=== PATIENT | male | born 1980 ===

== ENCOUNTER 2020-05-15 10:18 | Outpatient (REF) | payer OTHER, SELFPAY ==
[2020-05-15 12:26] LABS: COVID-19 Test Negative (Negative); IDNOW Serial# 55D5AD1C
== END 2020-05-15 10:19 | disposition home or self-care (01) ==
LOC: HO.LAB 10:18
PROVIDERS: Visit Provider Internal Medicine
DX: Z20.822 Contact with and (suspected) exposure to COVID-19 (principal)
CPT/HCPCS: 36415; 87635; C9803

== ENCOUNTER 2021-01-27 12:11 | Outpatient (REF) | payer OTHER, SELFPAY ==
--- NOTE | ~2021-01-27 | XR_ITS ---
EXAMINATION: XR CHEST CLINICAL INFORMATION: R04.2 - Hemoptysis COMPARISON: Chest radiographs 07/12/2016 TECHNIQUE: 2 views of the chest were obtained. FINDINGS: The lungs are clear. There is no mass or airspace consolidation or effusion. No coarsening bronchiolar markings or visible bronchiectasis. The heart is normal in size. The vascularity is normal. The hilar and mediastinal contours and visualized bony structures are unremarkable. XR/XR chest 2V IMPRESSION: Unremarkable examination.
[2021-01-27 13:49] LABS: MANUAL DIFF FLAG NO
[2021-01-27 13:56] LABS: Basophils Percent Auto 0.4 % (0-2); Eosinophils Percent Auto 0.6 % (0-4); Hematocrit 47.5 % (42.0-52.0); Imm Gran Abs Auto 0.01 X10*3/uL (0.00-0.03); Imm Gran Pct Auto 0.2 % (0.0-0.4); Lymphocytes Absolute Auto 1.1 X10*3/uL (1.2-4.9); Lymphocytes Percent Auto 24.1 % (20-40); Mean Corpuscular HGB Conc 33.7 g/dl (31.0-36.0); Mean Corpuscular Hemoglobin 30.9 pg (27.0-33.0); Mean Corpuscular Volume 91.9 fL (80.0-98.0); Monocytes Absolute Auto 0.4 X10*3/uL (0.1-1.2); Monocytes Percent Auto 7.5 % (2-11); Neutrophils Absolute Auto 3.1 x10*3/uL (2.0-8.3); Neutrophils Percent Auto 67.2 % (45-73); Platelet Count 219 X10*3/uL (160-400); Red Blood Count 5.17 X10*6/uL (4.60-5.80); Red Cell Distribution Width 12.2 % (11.0-16.0); White Blood Count 4.6 X10*3/uL (4.8-10.8)
[2021-01-27 13:58] LABS: Prothrombin Time 10.8 SEC (9.9-13.0)
[2021-01-27 14:27] LABS: Alanine Aminotransferase 20 U/L (0-40); Albumin Level 4.6 g/dL (3.5-5.0); Alkaline Phosphatase 97 U/L (39-117); Anion Gap 11 (12-20); Aspartate Amino Transferase 15 U/L (5-37); Bilirubin Total 0.5 mg/dL (0.0-1.0); Blood Urea Nitrogen 11 mg/dL (9-16); Calcium 9.9 mg/dL (8.4-10.2); Carbon Dioxide 29 mmol/L (22-29); Chloride 105 mmol/L (96-108); Estimated Glomerular Filt Rate > 60; Glucose Random 96 mg/dL (60-115); Potassium 4.5 mmol/L (3.3-5.1); Sodium 140 mmol/L (135-145); Total Protein 7.2 g/dL (6.5-8.0)
[2021-01-27 14:41] LABS: Valproate < 2.0 mcg/mL (50.0-100.0)
== END 2021-01-27 12:12 | disposition home or self-care (01) ==
LOC: HO.HMGCLDS 12:11
PROVIDERS: PCP Nurse Practitioner Family; Visit Provider Nurse Practitioner Family
DX: R04.2 Hemoptysis (principal); Z79.899 Other long term (current) drug therapy
CPT/HCPCS: 36415; 71046; 80053; 80164; 85025; 85610

== ENCOUNTER 2021-04-28 12:18 | Outpatient (REF) | payer OTHER, SELFPAY ==
--- NOTE | ~2021-04-28 | XR_ITS ---
EXAMINATION: XR KNEE, RIGHT CLINICAL INFORMATION: Fall COMPARISON: Previous x-ray October 2016 TECHNIQUE: Four views of the right knee. FINDINGS: Bone alignment is normal. No fracture or dislocation is seen. Joint spaces are normal. There is a moderate joint effusion. There is a small osteophyte at the quadriceps tendon insertion to the patella. XR/XR knee RT 4V IMPRESSION: Joint effusion. No fracture or dislocation seen.
== END 2021-04-28 12:19 | disposition home or self-care (01) ==
LOC: HO.HMGCX 12:18
PROVIDERS: Visit Provider Physician Assistant
DX: M25.461 Effusion, right knee (principal)
CPT/HCPCS: 73564

== ENCOUNTER 2021-06-01 09:04 | Outpatient (REF) | payer OTHER, SELFPAY ==
--- NOTE | ~2021-06-01 | XR_ITS ---
EXAMINATION: SUNRISE VIEW OF THE RIGHT KNEE CLINICAL INFORMATION: Pain COMPARISON: None TECHNIQUE: Single sunrise view of the right knee FINDINGS: The patella is normally positioned in the patellofemoral groove. Soft tissues are unremarkable. No acute fracture identified on this single radiograph. XR/XR knee RT 1V IMPRESSION: Unremarkable sunrise view of the right knee.
== END 2021-06-01 09:05 | disposition home or self-care (01) ==
LOC: HO.HOSX 09:04
PROVIDERS: PCP Internal Medicine; Visit Provider Physician Assistant
DX: M23.91 Unspecified internal derangement of right knee (principal)
CPT/HCPCS: 73560; 99202

== ENCOUNTER 2022-08-17 09:15 | Outpatient (AMB) | payer MEDICAID, SELFPAY ==
--- NOTE | 2022-08-17 09:50 | AM.OFFWIN_ITS ---
Intake Vital Signs 08/17/22 09:54 Height 5 ft 6 in BP 110/70 Blood Pressure Location Lt brachial Position Sitting Pulse 61 Pulse Source Pulse Oximeter Temp 97.2 F Temp Source Temporal Artery Scan Pulse Oximetry (%) 98 Oxygen Delivery Method Room Air Intake Visit Reasons: EP, Right eye burning, itchiness Intake Note: pt is here for c/o right eye itchiness and burning, since yesterday morning Patient Tobacco Use Status: Current everyday Tobacco user Tape Maker Required: No Accompanied by: Self / Same As Patient Allergies No Known Allergies [No Known Allergies*] Allergy (Verified 08/17/22 10:14) Do you need a note to return to daycare/school/sports/work: Yes HPI HPI Comments History of Present Illness Details here today with complaints of right eye itching and watery discharge along with swelling that started yesterday. Reports yesterday feeling like he had a scratch on his eye without known injury or any overt trauma. He does not wear contact lenses. No self home treatment was rendered. When he awoke this morning he had this swelling and watery discharge. He does have some light sensitivity but otherwise denies any visual changes. Denies fever chills headache. [facility] Medical History Anxiety Atopic dermatitis Carpal tunnel syndrome Surgical History Hx of left knee surgery Family History Father No problems noted. Mother Hypertension Social History Housing: Apartment Alcohol intake: current Alcohol intake frequency: a few times a week Patient Tobacco Use Status: Current everyday Tobacco user Cigarette Packs Per Day: 0.5 Cigarettes Per Day: 7 Years Smoked: 4 e-Cigarette/Vaping Use: Never Used service: No Current occupational exposures/hazards: No Cognitive needs: No Hearing needs: No Vision needs: No Review of Systems Const All systems reviewed & are unremarkable except as noted in HPI and below Physical Exam Vital Signs: Last Vital Signs Temp 97.2 F 08/17/22 09:54 Pulse 61 08/17/22 09:54 BP 110/70 08/17/22 09:54 Pulse Ox 98 08/17/22 09:54 Oxygen Delivery Method Room Air 08/17/22 09:54 Const Other: awake alert oriented atraumatic speaking in full sentences Eyes Other: Right upper and lower lid edema, able to open eyelids, watery discharge noted along with photophobia conjunctival injection generally speaking, PERRLA, EOMI Corneas: corneas abnormal on the right abrasion central and at the following clock position (6) Assessment & Plan Assessment & Plan (1) Corneal abrasion, right: Code(s): S05.01XA - Injury of conjunctiva and corneal abrasion without foreign body, right eye, initial encounter Medications: New erythromycin 0.5 inches ophthalmic (eye) BID 5 days 3.5 grams 0RF Patient Instructions: advised to call local mold making plastics sheets supervisor for eye evaluation in the next 24 hours. Given the name of [address] [place] [address] Alicia as well as the [facility]. eye protection to include sun protection recommended. Should he experience any change in vision emergency care recommended. Coding Level of Care Code Est Pt Level 3 (33714) Diagnoses Corneal abrasion, right S05.01XA
[2022-08-17 09:54] VITALS: BP 110/70; PULSE 61; TEMP 36.2; O2SAT 98
== END 2022-08-17 10:43 | disposition home or self-care (01) ==
PROVIDERS: PCP Internal Medicine; Visit Provider Nurse Practitioner Family
DX: S05.01XA Injury of conjunctiva and corneal abrasion without foreign body, right eye, initial encounter (principal)
CPT/HCPCS: 99213

== ENCOUNTER 2023-11-06 09:27 | Outpatient (REF) | payer MEDICAID, SELFPAY ==
[2023-11-06 14:06] LABS: Influenza A PCR NEGATIVE (Negative); Influenza B PCR NEGATIVE (Negative); Resp Syncy Virus RNA Qual PCR NEGATIVE (Negative); SARS COV2 PCR INHOUSE NEGATIVE (Negative)
== END 2023-11-06 09:28 | disposition home or self-care (01) ==
LOC: HO.LNP 09:27
PROVIDERS: PCP Internal Medicine; Visit Provider Physician Assistant
DX: J06.9 Acute upper respiratory infection, unspecified (principal); R09.89 Other specified symptoms and signs involving the circulatory and respiratory systems
CPT/HCPCS: 0241U; 99212

== ENCOUNTER 2023-11-06 09:27 | Outpatient (AMB) | payer OTHER, SELFPAY ==
[2023-11-06 11:28] VITALS: BP 130/82; PULSE 78; TEMP 36.8; O2SAT 98; BMI 27.4
--- NOTE | 2023-11-06 11:28 | MHC.OFFWIV ---
Intake Vital Signs 11/06/23 11:28 Height 5 ft 6 in Weight 170 lb BMI 27.4 BP 130/82 Blood Pressure Location Lt brachial Position Sitting Pulse 78 Pulse Source Pulse Oximeter Temp 98.2 F Temp Source Oral Pulse Oximetry (%) 98 Intake Visit Reasons: EP body ache, coughing, fever, chills Intake Note: pt is here for body ache, coughing, fever, chills for 5 days Patient Tobacco Use Status: Current everyday Tobacco user Allergies No Known Allergies [No Known Allergies*] Allergy (Verified 11/06/23 11:28) Do you need a note to return to daycare/school/sports/work: Yes HPI HPI Comments History of Present Illness Details Patient is a 43-year-old male complaining of 5 days of subjective fevers, chills, body aches, headaches, productive cough with thick green sputum, and diarrhea. He states he has been coughing so hard he will vomit whatever he just ate or drank. He denies any nausea, ear pain, sinus pain. He states he has been taking TheraFlu, Tylenol PM and trying to stay well hydrated. He denies any sick contacts. He denies testing for COVID at home. He denies a history of asthma or COPD but is a current smoker. Patient tells me he's never been so sick in his life. [facility] Medical History Anxiety Atopic dermatitis Carpal tunnel syndrome Surgical History Hx of left knee surgery Family History Father No problems noted. Mother Hypertension Social History Housing: Apartment Alcohol intake: current Alcohol intake frequency: a few times a week Patient Tobacco Use Status: Current everyday Tobacco user Cigarette Packs Per Day: 0.5 Cigarettes Per Day: 7 Years Smoked: 4 e-Cigarette/Vaping Use: Never Used service: No Current occupational exposures/hazards: No Cognitive needs: No Hearing needs: No Vision needs: No Review of Systems Const All systems reviewed & are unremarkable except as noted in HPI and below Physical Exam Vital Signs: Last Vital Signs Temp 98.2 F 11/06/23 11:28 Pulse 78 11/06/23 11:28 BP 130/82 11/06/23 11:28 Pulse Ox 98 11/06/23 11:28 BMI result Body Mass Index 27.4 Const General: cooperative, healthy appearing, comfortable and no acute distress Orientation/consciousness: patient oriented x3 Limitations: no limitations HEENT Head: Yes normal to inspection Ears: hearing grossly normal bilaterally, external ears normal and TM's normal bilaterally General nose exam: Normal external nose present, Normal nares present and No nasal discharge present Face and sinus: Yes normal facial exam and Yes sinuses nontender Mouth: Normal oral and palatal mucosa present and moist mucous membranes Throat: Yes tonsils normal, Yes uvula midline and Yes posterior oropharynx abnormal (Erythema) Eyes General: appearance normal, both eyes and all related structures Neck Neck: Yes normal visual inspection Resp Effort & Inspection: normal respiratory effort, able to speak in complete sentences, Actively coughing, no respiratory distress, not tachypneic, no tripod positioning and no use of accessory muscles Auscultation: clear to auscultation bilaterally Cardio Rate: regular rate Rhythm: regular rhythm Heart sounds: normal S1 and S2 Skin General skin exam: no rashes or lesions noted Neuro General: patient oriented x3 Extrem General: Yes normal to inspection and Yes no clubbing, cyanosis or edema Assessment & Plan Assessment & Plan (1) URI (upper respiratory infection): Code(s): J06.9 - Acute upper respiratory infection, unspecified Plan: Vital signs are stable, sent flu COVID and RSV testing, we will get a chest x-ray as he is a current smoker. Plan See above Orders: Orders XR chest 2V Today R05.9 - Cough, unspecified Coding Level of Care Code Est Pt Level 4 (90642) Diagnoses URI (upper respiratory infection) J06.9
== END 2023-11-06 12:29 | disposition home or self-care (01) ==
PROVIDERS: PCP Internal Medicine; Visit Provider Physician Assistant
DX: J06.9 Acute upper respiratory infection, unspecified (principal)

== ENCOUNTER 2023-11-06 12:13 | Outpatient (REF) | payer OTHER, SELFPAY ==
--- NOTE | ~2023-11-06 | XR_ITS ---
EXAMINATION: XR CHEST CLINICAL INFORMATION: Cough, unspecified. COMPARISON: 01/27/2021 TECHNIQUE: 2 views of the chest were obtained. FINDINGS: The lungs are well inflated. There is no gross pneumothorax. Heart size is normal. Mild dextroscoliosis of the thoracic spine. Redemonstration of prominence of the bilateral neno, similar in appearance. Degenerative changes in the thoracic spine. No pleural effusion. No new focal consolidation. XR/XR chest 2V IMPRESSION: No focal consolidation. Prominence of the bilateral neno redemonstrated. Electronically signed by: Idania Lucio MD 11/07/2023 06:46 AM EDT
== END 2023-11-06 12:14 | disposition home or self-care (01) ==
LOC: HO.HMGCX 12:13
PROVIDERS: PCP Nurse Practitioner Family; Visit Provider Physician Assistant
DX: R05.9 Cough, unspecified (principal)
CPT/HCPCS: 71046

== ENCOUNTER 2023-11-08 10:55 | Outpatient (AMB) | payer OTHER, SELFPAY ==
[2023-11-08 10:56] VITALS: BP 122/74; PULSE 57; O2SAT 96; BMI 25.8
--- NOTE | 2023-11-08 10:56 | A.OFFPC_ITS ---
Vital Signs 11/08/23 10:56 Height 5 ft 6 in Weight 160 lb BMI 25.8 BP 122/74 Blood Pressure Location Lt brachial Position Sitting Pulse 57 Pulse Source Pulse Oximeter Pulse Oximetry (%) 96 Oxygen Delivery Method Room Air Intake Visit Reasons: Cough f/u Intake Note: pt states on going cough SOB, and chills X1week Collection Correspondent Required: No Allergies No Known Allergies [No Known Allergies*] Allergy (Verified 11/08/23 10:56) Medication List - Last Reconciled 11/08/23 by Nilda Hopson PA-C mirtazapine 15 mg PO BEDTIME venlafaxine ER 75 mg PO DAILY Tobacco use date assessed: 11/08/23 Dental Screening Dental Screen Date: 11/08/23 HPI Cough f/u HPI Details 43-year-old male coming to the office fo r acute problem. In review of the notes, patient was seen in [facility] walk-in clinic 11/06/2023 for upper respirato ry infection chest x-ray was negative but showed prominence of bilateral neno and viral panel was also negative discharged home with conservative measures. Today he tells us he continues to have productive cough with yellow/clear sputum production. He does get night sweats but has not taken his temperature and is unsure if he has had a fever. His symptoms are going on day 8 and has been worsening and not improving. [facility] Medical History Anxiety Atopic dermatitis Carpal tunnel syndrome Surgical History Hx of left knee surgery Family History Father No problems noted. Mother Hypertension Social History Housing: Apartment Alcohol intake: current Alcohol intake frequency: a few times a week Patient Tobacco Use Status: Current everyday Tobacco user Cigarette Packs Per Day: 0.5 Cigarettes Per Day: 7 Years Smoked: 4 e-Cigarette/Vaping Use: Never Used service: No Current occupational exposures/hazards: No Cognitive needs: No Hearing needs: No Vision needs: No Questionnaire Thrive Questionnaire Date Thrive assessed: 10/02/24 I am a: Patient What is your living situation today?: I have a steady place to live Within the past 12 months, did the food you bought not last and you didn't have the money to get more?: Never true Within the past 12 months, did you worry whether your food would run out before you got money to buy more?: Never true Do you have trouble paying for medicines?: No Do you have trouble getting transportation to medical appointments?: No Do you have trouble paying your heating and electricity bill?: No Do you have trouble taking care of your child, family member or friend?: No Do you have trouble with day-to-day activities such as bathing, preparing meals, shopping, managing finances, etc.?: No Are you currently unemployed and looking for a job?: I choose not to answer this question Are you interested in more education?: No Please select the resources that you would like help with: None Currently or been in a relationship where the following occur: No concerns reported THRIVE Score: 0 AUDIT C Alcohol Use Questionnaire (AUDIT-C) 1. How often do you have a drink containing alcohol?: Monthly or less 2. How many drinks containing alcohol do you have on a typical day when you are drinking?: 1 or 2 3. How often do you have six or more drinks on one occasion?: Never Total Score: 1 Score Reviewed/Action Taken: Yes COCO-7 AMB Questionnaire COCO-7 Date COCO - 7 assessed: 11/08/23 Source: Developed by Drs. Dean Beyer, Margarita Beltran, Ryland Contreras and colleagues, with an educational brijesh from [employer]. Review of Systems Const Denies body aches, Reports chills, Denies fever(s), Denies headache(s), Reports night sweats and Reports poor appetite Eyes Reports no additional complaints ENT Details: Scratchy throat from cough Denies dysphagia, Denies headache(s), Reports nasal discharge, Denies odynophagia, Denies sinus pain, Denies sinus pressure and Denies sore throat Card Denies chest pain and Denies dyspnea Resp Denies change in phlegm color, Reports chest congestion, Reports cough (Productive), Denies hemoptysis and Denies dyspnea GI Reports abdominal pain, Denies dysphagia, Denies diarrhea, Denies nausea, Denies odynophagia and Denies vomiting Reports no additional complaints Musc Reports no additional complaints Neuro Denies headache(s) Physical exam (Primary Care) Vital Signs: Last Vital Signs Pulse 57 11/08/23 10:56 BP 122/74 11/08/23 10:56 Pulse Ox 96 11/08/23 10:56 Oxygen Delivery Method Room Air 11/08/23 10:56 BMI result Body Mass Index 25.8 Tobacco/Smoking Status: Tobacco use Status Tobacco use date assessed 11/08/23 11/08/23 11:02 Patient Tobacco Use Status Current everyday Tobacco 11/08/23 11:02 Tobacco use type 08/17/22 09:12 e-Cigarette/Vaping Use Never Used 11/08/23 11:02 Thrive Assessment: Date of Thrive Assessment Date Thrive assessed 11/08/23 11/08/23 11:02 Currently or been in a relationship where the following occur: No concerns re ported Const General: cooperative, healthy appearing, comfortable and no acute distress Orientation/consciousness: patient oriented x3 HENMT Head: Yes normocephalic Ears: hearing grossly normal bilaterally General nose exam: Normal external nose present Eyes General: appearance normal, both eyes and all related structures Conjunctivae: conjunctivae normal Neck Neck: Yes full ROM and Yes no lymphadenopathy Resp Effort & Inspection: normal respiratory effort Auscultation: clear to auscultation bilaterally, no crackles, no rales, rhonchi lower bilaterally and no wheezes Cardio Rate: regular rate Rhythm: regular rhythm Skin General skin exam: no rashes or lesions noted Neuro General: patient oriented x3 Gait exam (Neuro): Normal gait present Extrem General: Yes normal to inspection, Yes full ROM and No edema Psych Affect: normal affect Attitude: cooperative Insight: Good insight present (Psych) Judgement: Good judgement present (Psych) Coding Level of Care Code Est Pt Level 4 (66311) Diagnoses Hilar enlargement R91.8 Cough R05.9 Assessment & Plan Assessment & Plan (1) Hilar enlargement: Code(s): R91.8 - Other nonspecific abnormal finding of lung field Category: Medical Plan: CT with contrast ordered for further evaluation. Advised patient to have blood work done prior to imaging to evaluate kidney function. (2) Cough: Code(s): R05.9 - Cough, unspecified Category: Medical Plan: Patient continues to have productive cough with possible fever ongoing for 8 days now. His symptoms have been worsening over the last week and have not been improving. Chest x-ray was negative for pneumonia however mild rhonchi on auscultation in bilateral lungs. Given patient is a known smoker and symptoms have been worsening with possible fever we will treat prophylactically for pneumonia. Augmentin and azithromycin given for treatment of community-acquired pneumonia. Advised patient to take these medications with food and plenty of water. Advised patient to follow up if symptoms do not improve or worsen. Plan This note was constructed using voice recognition software. While every effort has been made to ensure accuracy and fashion patternmaker, still areas may have been included sometimes these areas may affect the content or meeting of the given symptoms. Total time spent caring for the patient today was 30 minutes. This includes time spent before the visit reviewing the chart, time spent during the visit, and time spent after the visit and documentation. Orders: Orders CT chest w IV con Today R91.8 - Other nonspecific abnormal finding of lung field Comprehensive Met. Panel Today Z00.00 - Encounter for general adult medical examination without abnormal findings Medications: New amoxicillin-pot clavulanate 875-125 mg 1 tab PO BID 5 days 10 tabs 0RF azithromycin 500 mg PO DAILY 3 days 3 tabs 0RF
== END 2023-11-08 11:35 | disposition home or self-care (01) ==
PROVIDERS: PCP Internal Medicine
DX: R91.8 Other nonspecific abnormal finding of lung field (principal); R05.9 Cough, unspecified

== ENCOUNTER → 2023-11-08 10:55 | Outpatient (BNVA) | payer OTHER, SELFPAY | PROVIDERS: PCP Internal Medicine | DX: R91.8 Other nonspecific abnormal finding of lung field (principal); R05.9 Cough, unspecified | CPT/HCPCS: 99212 ==

== ENCOUNTER 2024-01-15 09:27 | Outpatient (REF) | payer OTHER, SELFPAY ==
[2024-01-15] MEDS: iohexoL 350 MG/ML 100 ML INFUS..BTL 65 ML IV (10:20)
== END 2024-01-15 09:28 | disposition home or self-care (01) ==
LOC: HO.CT 09:27
PROVIDERS: PCP Internal Medicine
DX: R91.8 Other nonspecific abnormal finding of lung field (principal)
CPT/HCPCS: 71260; Q9967

== ENCOUNTER → 2024-01-15 09:30 | Outpatient (BNV) | payer OTHER, SELFPAY | PROVIDERS: PCP Internal Medicine; Visit Provider Radiology Diagnostic Radiology | DX: R91.8 Other nonspecific abnormal finding of lung field (principal) | CPT/HCPCS: 71260 ==